=== PATIENT | female | born 1960 | race American Indian/Alaskan Native ===

== ENCOUNTER 2017-10-06 14:40 | Emergency (ER) | payer OTHER ==
[2017-10-06 14:58] VITALS: BP 179/101
--- NOTE | 2017-10-06 15:14 | Emergency Department Report ---
HPI - General Chief Complaint: Head Injury Time Seen by Provider: 10/06/17 14:58 - HPI HPI: 57-year-old -[place] female states she had sudden fell on her at home was drinking at the time and was drunk could not recall what the object was that fell on the right side of her head. She does have right-sided facial pain , right periorbital swelling, headache and neck pain. She is able to move all extremities, she is able to ambulate without difficulty. She denies any LOC, but has difficulty recalling the event. ED Past Medical Hx - Past Medical History Previous Medical History?: Yes Hx Hypertension: No Hx CVA: No Additional medical history: ETOH use - Surgical History Past Surgical History?: No - Social History Smoking Status: Current Every Day Smoker Substance Use Type: Alcohol - Medications Home Medications: Home Medications Medication Instructions Recorded Confirmed Last Taken Type Ketorolac [Toradol] 10 mg PO Q6H PRN #12 tablet 10/06/17 Unknown Rx ED Review of Systems ROS: Stated complaint: HEAD INJURY Other details as noted in HPI Comment: All other systems reviewed and negative Eyes: eye pain, other (right periorbital swelling) Respiratory: denies: cough, orthopnea Cardiovascular: denies: chest pain, palpitations, dyspnea on exertion Physical Exam - Physical Exam Vital Signs: Vital Signs 10/06/17 10/06/17 14:43 14:57 Temperature 97.3 F L Pulse Rate 50 L 64 Respiratory 18 18 Rate Blood Pressure 157/83 Blood Pressure 179/101 [Left] O2 Sat by Pulse 99 99 Oximetry Physical Exam: - Physical Exam Physical Exam: - General Limitations: No Limitations General appearance: alert, in no apparent distress. - Head Head exam: Present: Right-sided frontal hematoma large. - Eye Eye exam: Present: normal appearance, right periocular swelling, difficult to pry open right eyelid. - ENT ENT exam: Present: mucous membranes moist - Neck Neck exam: Present: normal inspection - Respiratory Respiratory exam: Present: normal lung sounds bilaterally. Absent: respiratory distress - Cardiovascular Cardiovascular Exam: Present: normal rhythm, tachycardia. Absent: systolic murmur, diastolic murmur, rubs, gallop - GI/Abdominal GI/Abdominal exam: Present: soft, normal bowel sounds - Extremities Exam Extremities exam: Present: normal inspection - Back Exam Back exam: Present: normal inspection - Neurological Exam Neurological exam: Present: alert, oriented X3 - Psychiatric Psychiatric exam: normal affect and mood - Skin Skin exam: Present: warm, dry, intact, normal color. Absent: rash ED Course Vital Signs 10/06/17 10/06/17 14:43 14:57 Temperature 97.3 F L Pulse Rate 50 L 64 Respiratory 18 18 Rate Blood Pressure 157/83 Blood Pressure 179/101 [Left] O2 Sat by Pulse 99 99 Oximetry - Reevaluation(s) Reevaluation #1: 10/06/17 19:12 Patient advised to return to ED if symptoms worsen, if change in vision develops , headache worsened ED Medical Decision Making - Lab Data Result diagrams: 10/06/17 15:57 10/06/17 15:57 Critical care attestation.: If time is entered above; I have spent that time in minutes in the direct care of this critically ill patient, excluding procedure time. ED Disposition Clinical Impression: Head injury, closed Qualifiers: Encounter type: initial encounter Qualified Code(s): S09.90XA - Unspecified injury of head, initial encounter Disposition: - TO HOME OR SELFCARE Is pt being admited?: No Does the pt Need Aspirin: No Condition: Stable Instructions: Minor Head Injury (ED) Prescriptions: Ketorolac [Toradol] 10 mg PO Q6H PRN #12 tablet PRN Reason: Pain Referrals: LUKASZ CRUZ MD [Staff Physician] - 3-5 Days PRIMARY CARE, [Primary Care Provider] - 3-5 Days Forms: Work/School Release Form(ED)
[2017-10-06] MEDS ORDERED: ZOFRAN IV ONE (16:00)
[2017-10-06] MEDS ORDERED: MORPHINE IV ONE ×2 (16:00→16:22)
[2017-10-06] MEDS ORDERED: TYLENOL PO ONE (16:07)
--- NOTE | 2017-10-06 16:30 | Cat Scan Report ---
FINAL REPORT EXAM: CT HEAD/BRAIN WO CON HISTORY: fall, with closed head injury TECHNIQUE: Standard unenhanced CT of the head at 5.0 millimeter axial increments. PRIORS: None. FINDINGS: In the right frontal region, there is a 1.7 x 3.3 cm ovoid hyperdense focus, likely consistent with scalp hematoma. Extensive adjacent subcutaneous swelling is present in the right frontal region extending overlying the right orbit. The ventricular system is normal in size and configuration. There is no evidence for parenchymal volume loss. There is no evidence for mass lesion, mass effect, midline shift, acute intracranial hemorrhage, or acute ischemia/ infarction. No evidence for acute skull fracture is seen. Visualized paranasal sinuses are clear. Cerumen is present in both external auditory canals. IMPRESSION: Large right frontal hematoma of the scalp. Extensive subcutaneous swelling over the right orbit and right frontal region is seen. No acute intracranial process noted.
--- NOTE | 2017-10-06 16:35 | Cat Scan Report ---
FINAL REPORT EXAM: CT FACIAL BONES WO CON HISTORY: right periorbital swelling s/p fall TECHNIQUE: Standard unenhanced CT facial bones at 2.5 mm axial increments with coronal and sagittal reconstruction PRIORS: None. FINDINGS: The large ovoid hematoma in the right frontal scalp. Extensive subcutaneous soft tissue swelling of the right frontal region extending to the right orbital region is also noted. No evidence for acute bony fracture is noted. The frontal, ethmoid, maxillary, and sphenoid sinuses are clear with no evidence for air-fluid levels or mucosal thickening. Nasal septum is midline. The orbits are intact. The orbital globes are normal. The visualized mastoid air cells are also clear. IMPRESSION: Large hematoma overlying the right frontal scalp. Extensive surrounding subcutaneous soft tissue swelling is seen in the right frontal and right orbital region. No evidence for acute fracture.
[2017-10-06 16:39] LABS: Basophils # (Auto) 0.1 K/mm3 (0.0-0.1); Basophils % (Auto) 1.3 % (0.0-1.8); Hematocrit 38.6 % (30.3-42.9); Hemoglobin 13.3 gm/dl (10.1-14.3); Lymphocytes # (Auto) 1.1 K/mm3 (1.2-5.4); Lymphocytes % (Auto) 14.5 % (13.4-35.0); Mean Corpuscular HGB Conc 35 % (30-34); Mean Corpuscular Hemoglobin 32 pg (28-32); Mean Corpuscular Volume 93 fl (79-97); Monocytes # (Auto) 0.3 K/mm3 (0.0-0.8); Monocytes % (Auto) 3.5 % (0.0-7.3); Platelet Count 197 K/mm3 (140-440); Red Blood Count 4.15 M/mm3 (3.65-5.03); Red Cell Distribution Width 12.9 % (13.2-15.2)
[2017-10-06 17:02] LABS: Alanine Aminotransferase 25 units/L (7-56); Albumin 4.2 g/dL (3.9-5); BUN/Creatinine Ratio 26; Blood Urea Nitrogen 13 mg/dL (7-17); Calcium 8.2 mg/dL (8.4-10.2); Hemolysis Index 6
--- NOTE | 2017-10-06 18:23 | Cat Scan Report ---
FINAL REPORT EXAM: CT CERVICAL SPINE WO CON HISTORY: neck pain s/p fall TECHNIQUE: Standard CT cervical spine obtained at 2.5 mm axial increments. Coronal and sagittal reconstruction was also performed. PRIORS: None. FINDINGS: The vertebral bodies are intact. There is no evidence for acute fracture. There is no evidence for paravertebral soft tissue swelling. Alignment is maintained. Moderate disc space narrowing at C4-C5 is seen with spurring anteriorly and posteriorly at that level. There is mild narrowing at C2-C3. There is also spurring anteriorly and posteriorly at C3-C4. Extensive soft tissue swelling over the right orbit and right frontal region with a right frontal scalp hematoma partially identified. IMPRESSION: No acute bony abnormality of the cervical spine. Moderate degenerative disc space narrowing from C4-C5 and mild narrowing at C2-C3 is noted
== END 2017-10-06 19:15 | disposition home or self-care (01) ==
LOC: ED 14:40
DX: S00.93XA Contusion of unspecified part of head, initial encounter (principal); F17.200 Nicotine dependence, unspecified, uncomplicated; W18.30XA Fall on same level, unspecified, initial encounter; Y93.89 Activity, other specified; Y92.89 Other specified places as the place of occurrence of the external cause; Y99.8 Other external cause status
CPT/HCPCS: 36415; 70450; 70486; 72125; 80053; 85025; 96374; 96375; 99284; G0480; J2270; J2405; 80320